=== PATIENT | female | born 1940 ===

== ENCOUNTER 2016-09-05 20:05 | Observation (INO) | payer MEDICARE, MEDICAID ==
[2016-09-05 20:05] VITALS: BMI 27.1
[2016-09-05 21:26] VITALS: BP 149/91; PULSE 58; RESP 17; TEMP 98.4; O2SAT 100
[2016-09-05] MEDS ORDERED: Iohexol 240 (50 ml) PO ONE (21:51)
--- NOTE | 2016-09-05 22:34 | ED PDOC ---
HPI: Abdomen <Marcus Shirley - Last Filed: 09/06/16 00:50> Chief Complaint (Provider): vomiting History Per: Patient History/Exam Limitations: no limitations Onset/Duration Of Symptoms: Days (3) Location Of Pain/Discomfort: Periumbilical Quality Of Discomfort: Aching Associated Symptoms: Chills, Nausea, Vomiting, Loss Of Appetite, Back Pain, Chest Pain. denies: Fever, Diarrhea, Urinary Symptoms Exacerbating Factors: Food Alleviating Factors: None <Melly Olivera - Last Filed: 09/07/16 16:21> Time Seen by Provider: 09/05/16 21:35 Chief Complaint (Nursing): Abdominal Pain Past Medical History <Marcus Shirley - Last Filed: 09/06/16 00:50> Reviewed: Historical Data, Nursing Documentation, Vital Signs - Medical History PMH: Anxiety, Arthritis, Asthma, Bipolar Disorder, COPD, Depression, Diabetes ( Type II), Fractures (RIGHT SHOULDER), Gastritis, GERD, HTN, Hypercholesterolemia , Migraine Denies: HIV, Chronic Kidney Disease - Surgical History Surgical History: Cholecystectomy, Endoscopy Other surgeries: Tubal ligation - Family History Family History: States: No Known Family Hx - Social History Current smoker - smoking cessation education provided: No Alcohol: None <Melly Olivera - Last Filed: 09/07/16 16:21> Vital Signs: Last Vital Signs Temp 98.4 F 09/05/16 21:05 Pulse 58 L 09/05/16 21:05 Resp 17 09/05/16 21:05 BP 149/91 H 09/05/16 21:05 Pulse Ox 100 09/06/16 03:24 - Home Medications Home Medications: Ambulatory Orders Medication Instructions Recorded Fluticasone/Salmeterol 250/50 1 puff IH Q12H 03/07/16 [Advair Diskus 250/50] Ranitidine HCl [Zantac] 300 mg PO QPM #0 tablet 03/08/16 Albuterol 0.083% [Albuterol 0.083% 2.5 mg INH Q4 PRN 06/15/16 Inhal Sarahi (2.5 mg/3 ml) UD] Losartan [Cozaar] 100 mg PO DAILY 06/15/16 Naproxen [Naprosyn] 500 mg PO BID PRN 06/15/16 Pantoprazole Sodium [Protonix] 40 mg PO DAILY 06/15/16 Rosuvastatin Calcium [Crestor] 20 mg PO DAILY #0 tab 06/16/16 Benzonatate [Tessalon Perle] 100 mg PO TID #20 capsule 09/06/16 - Allergies Allergies/Adverse Reactions: Allergies Allergy/AdvReac Type Severity Reaction Status Date / Time banana Allergy PAIN Verified 03/07/16 18:50 pollen extracts Allergy WHEEZING Verified 03/07/16 12:00 DUST Allergy ITCHING Uncoded 07/11/15 07:47 Review of Systems ROS Statement: Except As Marked, All Systems Reviewed And Found Negative (and as per HPI) Constitutional: Positive for: Chills, Weakness, Malaise Respiratory: Positive for: Cough Gastrointestinal: Positive for: Nausea, Vomiting, Abdominal Pain, Diarrhea, Hematemesis (one episode). Negative for: Constipation, Melena, Hematochezia, Rectal Pain Genitourinary Female: Negative for: Dysuria, Frequency, Incontinence, Hematuria <Melly Olivera - Last Filed: 09/07/16 16:21> Physical Exam - Reviewed Nursing Documentation Reviewed: Yes Vital Signs Reviewed: Yes - Physical Exam Appears: Positive for: Non-toxic, In Acute Distress Head Exam: Positive for: ATRAUMATIC, NORMOCEPHALIC Skin: Positive for: Warm, Dry Eye Exam: Positive for: EOMI, PERRL ENT: Positive for: Other (tacky muc membranes). Negative for: Pharyngeal Erythema, Tonsillar Exudate Neck: Positive for: Painless ROM, Supple Cardiovascular/Chest: Positive for: Regular Rate, Rhythm, Chest Non Tender. Negative for: Murmur Respiratory: Positive for: Normal Breath Sounds. Negative for: Wheezing Gastrointestinal/Abdominal: Positive for: Bowel Sounds, Soft, Tenderness ( peribumbilical), Distended (softly distended). Negative for: Mass, Guarding, Rebound Back: Positive for: Normal Inspection. Negative for: Vertebral Tenderness Extremity: Positive for: Normal ROM. Negative for: Pedal Edema Lymphatic: Negative for: Adenopathy Neurologic/Psych: Positive for: Alert, Mood/Affect (anxious affect). Negative for: Motor/Sensory Deficits <Melly Olivera - Last Filed: 09/07/16 16:21> - Laboratory Results Result Diagrams: 09/05/16 22:36 09/05/16 22:36 <Marcus Shirley - Last Filed: 09/06/16 00:50> - Laboratory Results Result Diagrams: 09/05/16 22:36 09/05/16 22:36 - ECG O2 Sat by Pulse Oximetry: 100 <Melly Olivera - Last Filed: 09/07/16 16:21> ED OBSERVATION Date of observation admission: 09/05/16 Time of observation admission: 22:00 <Melly Olivera - Last Filed: 09/07/16 16:21> - Observation admission statement Patient is being placed in observation because:: Time intensive ER evaluation/workup and serial abdominal exams (Melly Olivera) - Goals of Observation Goals of observation are:: Rule in/out acute condition and stabilize clinical condition, pain control ( Melly Olivera) - Progress Note Progress Note: 2400 Pt's pain controlled. Labs unremarkable. Pending CT Endorsed to Dr Shirley. (Melly Olivera) Disposition - Patient ED Disposition Is Patient to be Admitted: Transfer of Care - Disposition Disposition: Transfer of Care <Marcus Shirley - Last Filed: 09/06/16 00:50> - Patient ED Disposition Is Patient to be Admitted: Transfer of Care - Disposition Disposition: Transfer of Care Disposition Time: 22:00 Patient Signed Over To: Marcus Shirley Handoff Comments: Pending ER workup, reassessment, final dispo <Melly Olivera - Last Filed: 09/07/16 16:21> - Clinical Impression Clinical Impression: Vomiting, Abdominal pain - Disposition Condition: IMPROVED
[2016-09-05 22:40] LABS: BASO # 0.1 K/uL (0.0-0.2); BASO % 0.9 % (0.0-2.0); EOS % 0.1 % (0.0-4.0); LYMPH # 1.3 K/uL (1.0-4.3); LYMPH % 15.2 % (20.0-40.0); MEAN CELL VOLUME 85.3 fl (81.0-99.0); MEAN CORPUSCULAR HEMOGLOBIN 28.9 pg (27.0-31.0); MEAN CORPUSCULAR HGB CONC 33.8 g/dL (33.0-37.0); MONO # 0.5 K/uL (0.0-0.8); MONO % 5.7 % (0.0-10.0); NEUT # 6.7 K/uL (1.8-7.0); NEUT % 78.1 % (50.0-75.0); RED CELL DISTRIBUTION WIDTH 13.4 % (11.5-14.5); WHITE BLOOD COUNT 8.6 K/uL (4.8-10.8)
[2016-09-05 22:42] LABS: VENOUS BLOOD GAS BASE EXCESS 3.9 mmol/L (0.0-2.0); VENOUS BLOOD GAS PCO2 51 mmHg (40-60); VENOUS BLOOD PH 7.38 (7.32-7.43)
[2016-09-05] MEDS ORDERED: Iohexol 240 (50 ml) ONE (22:52)
[2016-09-05 22:55] LABS: PARTIAL THROMBOPLASTIN TIME 26.3 Seconds (25.6-37.1)
[2016-09-05 23:02] LABS: ALB/GLOB RATIO 1.6 (1.0-2.1); ALKALINE PHOSPHATASE 72 U/L (38-126); ALT/SGPT 38 U/L (9-52); AST/SGOT 31 U/L (14-36); BILIRUBIN,TOTAL 0.4 mg/dl (0.2-1.3); BLOOD UREA NITROGEN 16 mg/dl (7-17); CALCIUM 9.6 mg/dL (8.4-10.2); CARBON DIOXIDE 26 mmol/L (22-30); CHLORIDE 94 mmol/L (98-107); GFR AFRICAN-AMERICAN 59; GLUCOSE,RANDOM 129 mg/dL (65-105); LIPASE 126 U/L (23-300); PHOSPHOROUS 2.9 mg/dl (2.5-4.5); POTASSIUM 3.9 MMOL/L (3.6-5.0); SODIUM 131 mmol/l (132-148); TOTAL PROTEIN 7.9 G/DL (6.3-8.2)
[2016-09-05 23:33] LABS: THYROID STIMULATING HORMONE 0.43 mIU/ML (0.46-4.68)
[2016-09-06] MEDS ORDERED: Iohexol 300 100 ML IJ ONE (01:09)
[2016-09-06] MEDS ORDERED: Sodium Chloride 0.9% 50 ML IV ONE (01:09)
--- NOTE | 2016-09-06 01:15 | ED PDOC ---
- Laboratory Results Result Diagrams: 09/05/16 22:36 09/05/16 22:36 - ECG O2 Sat by Pulse Oximetry: 100 (RA) Pulse Ox Interpretation: Normal Medical Decision Making Medical Decision Making: Time: 0000 Transfer of Care from Dr. Olivera Pending further Workup GFR low, however BUN/Cr wnl, okay to scan with dye. 0254- CT SCAN Results interpreted by Marcus Shirley M.D. Accession No. : [id number] Patient Name / ID : DEYSI TIAN / [id number] Exam Date : 09/06/2016 02:02:52 ( Approved ) Study Comment : Sex / Age : F / 75Y Creator : Alka Scott MD Dictator : Postal Clerk : Political Advisor : Alka Scott MD Approver2 : Report Date : 09/06/2016 02:54:00 My Comment : [facility] Division of Radiology [address] [place] [address] Tel. no. Patient Name: JAYLAN JO Pt. Address: [address] [place] [address]. Rec #: [id number] [place] [address]: Jarod CHAPARRO, Melly Tate Pt CELL Order Location: [facility] : 1940 Female Age: 75 Order #: [id number] Reason for exam: abd pain vomiting CT Scan ABD PELVIS PO IV CONTRAST Exam Date: 09/05/16 This imaging exam was performed at [facility] EXAM: CT Abdomen and Pelvis With Intravenous Contrast CLINICAL HISTORY: 75 years old, female; Pain; Abdominal pain; Generalized; Additional info: Abd pain vomiting TECHNIQUE: Axial computed tomography images of the abdomen and pelvis with intravenous contrast. This CT exam was performed using one or more of the following dose reduction techniques: automated exposure control, adjustment of the mA and/or kV according to patient size, and/or use of iterative reconstruction technique. Coronal and sagittal reformatted images were created and reviewed. CONTRAST: 95 mL of [id number] administered intravenously. EXAM DATE/TIME: 09/05/2016 9:51 PM COMPARISON: Prior CT abdomen and pelvis of 08/28/2015 FINDINGS: LOWER THORAX: : Coronary artery calcification. ABDOMEN: LIVER: Fatty infiltration of the liver. 8 mm low density liver lesion, most likely a cyst. GALLBLADDER AND BILE DUCTS: Cholecystectomy clips. Biliary ductal dilatation, which may be related to the post cholecystectomy state. No radiopaque common bile duct stones are visualized. Recommend correlation with LFTs as clinically indicated. PANCREAS: No CT evidence of acute pancreatitis. SPLEEN: No acute abnormality of the spleen identified. ADRENALS: No acute abnormality of the adrenal glands identified. KIDNEYS AND URETERS: Stable appearance of a 2 x 1 cm fat density lesion in the right kidney, most compatible an angiomyolipoma. Bilateral renal scarring. No evidence of hydroureteronephrosis. STOMACH AND BOWEL: Colonic diverticulosis, with no evidence of acute diverticulitis. APPENDIX: Appendix is seen, and is within normal limits in appearance. PELVIS: BLADDER: No acute abnormality of the bladder identified. REPRODUCTIVE: Uterus is surgically absent. No evidence of large adnexal masses. ABDOMEN and PELVIS: INTRAPERITONEAL SPACE: No evidence of free intraperitoneal air or fluid. BONES/JOINTS: Bony structures appear demineralized. Stable appearance of a mild, chronic vertebral compression fracture involving T9. SOFT TISSUES: No acute abnormality of the visualized soft tissues is seen. VASCULATURE: No evidence of abdominal aortic aneurysm. No evidence of periaortic hemorrhage. LYMPH NODES: No evidence of diffuse lymphadenopathy. IMPRESSION: - No evidence of significant acute process. No definite cause for pain identified. - See above for remaining findings. Dictated By: Alka Scott MD Dictated Date/Time: 09/06/16253 Signed By: Alka Scott MD Date Signed: 253 Transcribed By: IVA Transcribe Date/Time : 09/06/16253 [facility] Scribe Attestation: Documented by Reina Tineo, acting as a scribe for Marcus Shirley MD MD Scribe Attestation: All medical record entries made by the Laura were at my direction and personally dictated by me. I have reviewed the chart and agree that the record accurately reflects my personal performance of the history, physical exam, medical decision making, and the department course for this patient. I have also personally directed, reviewed, and agree with the discharge instructions and disposition. Disposition - Clinical Impression Clinical Impression: Vomiting - POA Present On Arrival: None - Disposition Disposition: Routine/Home Disposition Time: 03:15 Condition: IMPROVED Progress Note - Review of Symptoms Events since last encounter: 315aM: pt. feeling much better, no longer nauseated or having abd pain. asking for cough medicine. will d/c home. return precautions given. pt. not vomiting , tolerating po.
--- NOTE | 2016-09-06 02:54 | CT ---
EXAM: CT Abdomen and Pelvis With Intravenous Contrast CLINICAL HISTORY: 75 years old, female; Pain; Abdominal pain; Generalized; Additional info: Abd pain vomiting TECHNIQUE: Axial computed tomography images of the abdomen and pelvis with intravenous contrast. This CT exam was performed using one or more of the following dose reduction techniques: automated exposure control, adjustment of the mA and/or kV according to patient size, and/or use of iterative reconstruction technique. Coronal and sagittal reformatted images were created and reviewed. CONTRAST: 95 mL of [id number] administered intravenously. EXAM DATE/TIME: 09/05/2016 9:51 PM COMPARISON: Prior CT abdomen and pelvis of 08/28/2015 FINDINGS: LOWER THORAX: : Coronary artery calcification. ABDOMEN: LIVER: Fatty infiltration of the liver. 8 mm low density liver lesion, most likely a cyst. GALLBLADDER AND BILE DUCTS: Cholecystectomy clips. Biliary ductal dilatation, which may be related to the post cholecystectomy state. No radiopaque common bile duct stones are visualized. Recommend correlation with LFTs as clinically indicated. PANCREAS: No CT evidence of acute pancreatitis. SPLEEN: No acute abnormality of the spleen identified. ADRENALS: No acute abnormality of the adrenal glands identified. KIDNEYS AND URETERS: Stable appearance of a 2 x 1 cm fat density lesion in the right kidney, most compatible an angiomyolipoma. Bilateral renal scarring. No evidence of hydroureteronephrosis. STOMACH AND BOWEL: Colonic diverticulosis, with no evidence of acute diverticulitis. APPENDIX: Appendix is seen, and is within normal limits in appearance. PELVIS: BLADDER: No acute abnormality of the bladder identified. REPRODUCTIVE: Uterus is surgically absent. No evidence of large adnexal masses. ABDOMEN and PELVIS: INTRAPERITONEAL SPACE: No evidence of free intraperitoneal air or fluid. BONES/JOINTS: Bony structures appear demineralized. Stable appearance of a mild, chronic vertebral compression fracture involving T9. SOFT TISSUES: No acute abnormality of the visualized soft tissues is seen. VASCULATURE: No evidence of abdominal aortic aneurysm. No evidence of periaortic hemorrhage. LYMPH NODES: No evidence of diffuse lymphadenopathy. IMPRESSION: - No evidence of significant acute process. No definite cause for pain identified. - See above for remaining findings.
--- NOTE | 2016-09-06 12:45 | CARD ---
APPROVED REPORT EKG Measurement Heart [id number] <Conclusion> Sinus bradycardia Junctional ST depression, probably abnormal Abnormal ECG
== END 2016-09-06 03:24 | disposition home or self-care (01) ==
LOC: H.ER 20:05 → H.EROBSV 21:52
PROVIDERS: ADMIT Emergency Medicine; ATTEND Emergency Medicine
DX: R11.10 Vomiting, unspecified (principal); R10.9 Unspecified abdominal pain; F31.9 Bipolar disorder, unspecified; J44.9 Chronic obstructive pulmonary disease, unspecified; E11.9 Type 2 diabetes mellitus without complications; K21.9 Gastro-esophageal reflux disease without esophagitis; I10 Essential (primary) hypertension; E78.00 Pure hypercholesterolemia, unspecified; J45.909 Unspecified asthma, uncomplicated; M19.90 Unspecified osteoarthritis, unspecified site; Z87.891 Personal history of nicotine dependence
CPT/HCPCS: 36415; 74177; 80053; 82803; 83690; 83735; 84100; 84443; 84484; 85025; 85610; 85730; 87040; 93005; 96374; 99282; C9113; G0378; J2405; Q9966; Q9967